=== PATIENT | female | born 1980 | race Caucasian/White ===

== ENCOUNTER 2019-01-29 05:25 | Emergency (ER) | payer OTHER ==
[~2019-01-29] VITALS: Ht 172.7 cm; Wt 93.9 kg
[2019-01-29 05:36] VITALS: Ht 172.7 cm; Wt 93.9 kg
[2019-01-29 08:11] VITALS: BP 142/77
[2019-01-29 08:20] LABS: UA SPECIFIC GRAVITY 1.015 (1.005-1.035); microscopic required? YES; urine erythrocyte 2+ (NEGATIVE)
== END 2019-01-29 08:10 | disposition home or self-care (01) ==
LOC: ED 05:25
PROVIDERS: Emergency Medicine
DX: J02.0 Streptococcal pharyngitis (principal); K12.2 Cellulitis and abscess of mouth
CPT/HCPCS: J0561; J7512

== ENCOUNTER 2019-04-27 20:34 | Emergency (ER) | payer OTHER ==
[~2019-04-27] VITALS: Ht 172.7 cm; Wt 95.5 kg
[2019-04-27 22:17] LABS: BASOPHIL % 0.3 % (0-2); PLATELET COUNT 229 x10^3mcL (130-400); RED CELL DISTRIBUTION WIDTH 14.4 % (11.5-14.5)
[2019-04-27 22:24] LABS: CALCIUM 8.3 mg/dL (8.5-10.1); CARBON DIOXIDE 26.6 mmol/L (21-32); CHLORIDE SERUM 107 mmol/L (98-107); CREATININE SERUM 0.8 mg/dL (0.6-1.0); GFR1 > 60 mL/min; GLUCOSE SERUM 89 mg/dL (74-106); POTASSIUM SERUM 4.3 mmol/L (3.5-5.1); SODIUM SERUM 142 mmol/L (136-145)
[2019-04-27 22:28] LABS: ALBUMIN 3.4 g/dL (3.4-5.0); ALKALINE PHOSPHATASE 63 U/L (46-116); ALT/SGPT 12 U/L (14-59); AMYLASE 47 U/L (25-115); AST/SGOT 3 U/L (15-37); BILIRUBIN TOTAL 0.42 mg/dL (0.20-1.00); LIPASE 82 IU/L (73-393); TOTAL PROTEIN, SERUM 7.5 g/dL (6.4-8.2)
[2019-04-27 23:56] VITALS: BP 106/74
== END 2019-04-27 23:56 | disposition home or self-care (01) ==
LOC: ED 20:34
PROVIDERS: Emergency Medicine
DX: K21.9 Gastro-esophageal reflux disease without esophagitis (principal)
CPT/HCPCS: 36415; Q0092